=== PATIENT | male | born 1950 | race Caucasian/White ===

== ENCOUNTER 2021-11-01 10:58 | Outpatient (CLI) | payer MEDICARE, BC ==
[2021-11-02 11:22] LABS: SARS-CoV-2 PCR by NAA Not Detected (NotDetected)
== END 2021-11-01 10:59 | disposition home or self-care (01) ==
LOC: CSHLAB 10:58
PROVIDERS: ATTEND Chiropractor
DX: Z20.822 Contact with and (suspected) exposure to COVID-19 (principal)
CPT/HCPCS: U0003; U0005

== ENCOUNTER 2021-11-06 13:35 | Outpatient (CLI) | payer MEDICARE, BC | END 2021-11-06 13:36 | disposition home or self-care (01) | LOC: CSHCP 13:35 | PROVIDERS: ATTEND Chiropractor | DX: R06.02 Shortness of breath (principal) | CPT/HCPCS: 94060; 94760 ==